=== PATIENT | female | born 1970 | race Caucasian/White ===

== ENCOUNTER 2018-09-16 15:18 | Emergency (ER) | payer BC, MEDICAID ==
[~2018-09-16] VITALS: Ht 165.1 cm; Wt 97.0 kg
[2018-09-16 15:40] VITALS: BP 140/69
== END 2018-09-16 17:22 | disposition home or self-care (01) ==
LOC: ER 15:18
DX: S60.222A Contusion of left hand, initial encounter (principal); S90.30XA Contusion of unspecified foot, initial encounter; Z90.49 Acquired absence of other specified parts of digestive tract; Z98.890 Other specified postprocedural states; X50.1XXA Overexertion from prolonged static or awkward postures, initial encounter; Y93.89 Activity, other specified; Y92.89 Other specified places as the place of occurrence of the external cause; Y99.8 Other external cause status
CPT/HCPCS: 73130; 99283